=== PATIENT | female | born 1970 | race Caucasian/White ===

== ENCOUNTER 2022-07-27 05:30 | Day surgery (SDC) | payer BC, OTHER ==
[2022-07-26 10:29] VITALS: BMI 33.9
[2022-07-27 09:25] VITALS: TEMP 97.7
[2022-07-27 09:27] VITALS: RESP 20
[2022-07-27 11:07] VITALS: BP 114/79; PULSE 74
== END 2022-07-27 10:00 | disposition home or self-care (01) ==
LOC: JASU-ENDO 05:30
PROVIDERS: ATTEND Internal Medicine Gastroenterology
PROC: 0DB78ZX Excision of Stomach, Pylorus, Via Natural or Artificial Opening Endoscopic, Diagnostic (ICD-10-PCS; 2022-07-27)
PROC: 0DBL8ZX Excision of Transverse Colon, Via Natural or Artificial Opening Endoscopic, Diagnostic (ICD-10-PCS; principal; 2022-07-27 08:30)
DX: Z12.11 Encounter for screening for malignant neoplasm of colon (principal); D12.3 Benign neoplasm of transverse colon; K29.50 Unspecified chronic gastritis without bleeding; K64.8 Other hemorrhoids
CPT/HCPCS: 88305-TC; 88342-TC